=== PATIENT | female | born 1960 | race Caucasian/White ===

== ENCOUNTER → 2020-07-25 | Outpatient (CLI) | payer BC, OTHER ==
[~2020-07-25] MED LIST: ASPIRIN EC81 MG PO; ATIVAN0.5 MG PO; ATORVASTATIN CA20 MG PO; CALCIUM 600+D1 EAC3 PO; CALCIUM PO; LEVAQUIN500 MG PO; NITROSTAT 0.40.4 MG SL; OMEPRAZOLE40 MG PO; SYNTHROID100 MCG PO; TENCON 50-3251 EACH PO; TYLENOL 325MG325 MG PO; ULTRAM50 MG PO; VITAMIN D32000 UNI1 PO; ZANTAC150 MG PO; [UNRECOGNIZED DRUG - OTHER] TD
== END ==
LOC: LAB 11:10
DX: E03.9 Hypothyroidism, unspecified (principal); E78.5 Hyperlipidemia, unspecified; I20.9 Angina pectoris, unspecified; I63.9 Cerebral infarction, unspecified; R00.2 Palpitations
CPT/HCPCS: 80061; 80076; 84439; 84443; 84481

== ENCOUNTER → 2021-05-20 | Outpatient (CLI) | payer BC | LOC: KOH-I 16:15 | DX: M54.50 Low back pain, unspecified (principal); M51.36 Other intervertebral disc degeneration, lumbar region; M51.37 Other intervertebral disc degeneration, lumbosacral region | CPT/HCPCS: 72100; 72148 ==

== ENCOUNTER 2022-01-06 00:47 | Emergency (ER) | payer BC ==
[2022-01-06 02:17] LABS: HEMOGLOBIN 14.4 gm/dl (12.3-15.3); RED BLOOD COUNT 4.51 M/UL (4.00-5.10)
[2022-01-06 02:39] LABS: BUN/CREATININE RATIO 20 (0-10)
== END 2022-01-06 04:10 | disposition home or self-care (01) ==
LOC: ER1 00:47
PROVIDERS: Emergency Medicine
DX: R00.2 Palpitations (principal)
CPT/HCPCS: 71045; 80048; 83735; 84439; 84443; 84484; 85025; 93005; 99285